=== PATIENT | male | born 1970 | race Caucasian/White ===

== ENCOUNTER 2019-11-22 15:35 | Emergency (ER) | payer MEDICAID ==
[~2019-11-22] VITALS: Ht 182.9 cm; Wt 84.5 kg
[2019-11-22 15:39] VITALS: BP 138/88
--- NOTE | 2019-11-22 15:53 | NUR ---
PT PLACED IN SECURE ROOM. BELONGINGS PLACED IN ONE BAG AND PLACED IN LOCKER. PT PLACED ON PULSE OX FOR SAFETY.
--- NOTE | 2019-11-22 15:54 | NUR ---
THIS [facility] WAS TOLD BY THE PT THAT "HE IS NOT SUICIDAL, HE IS JUST UNHAPPY WHERE HE IS IN LIFE".
--- NOTE | 2019-11-22 16:27 | NUR ---
PT PROVIDED URINE SAMPLE AND LABS DRAWN. ASSOCIATE PASTOR WALKED SAMPLES TO LAB. PRIOR TO LABE DRAW, PT STANDING IN DOORWAY STATING "I NEED MY PHONE". PT REDIRECTED BACK INTO ROOM AFTER JUST A MINUTE. PT IN DIRECT SIGHT OF SITTER FOR SAFETY.
[2019-11-22 16:29] LABS: BASOPHILS # (AUTO) 0.01 x10^3/uL (0-0.1); BASOPHILS % (AUTO) 0 % (0-1); EOSINOPHILS % (AUTO) 0 % (1-7); LYMPHOCYTES # (AUTO) 0.87 x10^3/uL (1-3.4); LYMPHOCYTES % (AUTO) 14 % (22-44); MD NO; MEAN CORPUSCULAR HEMOGLOBIN 33.4 pg (27.5-34.5); MEAN CORPUSCULAR HGB CONC 33.4 g/dL (33.2-36.2); MEAN CORPUSCULAR VOLUME 100.1 fL (81-97); MEAN PLATELET VOLUME 7.3 fL (7.4-10.4); MONOCYTES # (AUTO) 0.72 x10^3/uL (0.2-0.8); MONOCYTES % (AUTO) 12 % (2-9); NEUTROPHILS # (AUTO) 4.61 x10^3/uL (1.8-6.8); NEUTROPHILS % (AUTO) 74 % (42-75); PLATELET COUNT 154 x10^3/uL (130-400); RED BLOOD COUNT 4.67 x10^6/uL (4.38-5.82); RED CELL DISTRIBUTION WIDTH 16.1 % (9.4-14.8)
[2019-11-22 16:41] LABS: ALBUMIN 3.7 g/dL (3.4-5.0); ANION GAP 9 mmol/L (5-15); CALCIUM 8.2 mg/dL (8.5-10.1); CHLORIDE 108 mmol/L (98-107); CREATININE 0.69 mg/dL (0.7-1.3); SALICYLATE LEVEL 3.9 mg/dL (2.8-20.0)
[2019-11-22 16:48] LABS: AMPHETAMINE SCREEN, URINE Negative (Negative); BARBITURATE SCREEN, URINE Negative (Negative); BENZODIAZEPINE SCREEN, URINE Positive (Negative); CANNABINOID SCREEN, URINE Negative (Negative); COCAINE SCREEN, URINE Negative (Negative); METHADONE SCREEN, URINE Negative (Negative); OPIATE SCREEN, URINE Negative (Negative)
--- NOTE | 2019-11-22 16:50 | NUR ---
DIET TRAY DELIVERED TO PT.
--- NOTE | 2019-11-22 17:23 | NUR ---
PT GIVEN PHONE FROM [employer] TO CALL FAMILY TO UPDATE ON POC. PT GIVEN 5 MINUTES, THEN PHONE TO BE RETURNED TO [employer] BAG.
--- NOTE | 2019-11-22 17:31 | NUR ---
PT CONTACTED FAMILY AND PHONE RETURNED TO BELONGINGS BAG.
--- NOTE | 2019-11-22 18:33 | NUR ---
TASK RN: PT AMBULATORY WITH STEADY GAIT TO BATHROOM AT THIS TIME. NADN ALL SAFETY MEASURES OBTAINED. SITTER AT DOORWAY PT WITHIN FULL VIEW.
--- NOTE | 2019-11-22 19:18 | NUR ---
BREATHALYZER 0.267. PT IN DIRECT SIGHT OF SITTER. ROOM SECURE.
[2019-11-22] MEDS ORDERED: LORazepam 1MG TABLET ONE (19:37)
--- NOTE | 2019-11-22 19:40 | NUR ---
[employer] PER MAR
[2019-11-22] MEDS ORDERED: LORazepam 1MG TABLET PO ONE (20:00)
--- NOTE | 2019-11-22 21:05 | NUR ---
PT PACING IN ROOM, ASKING WHEN HE'S GOING TO GET OUT OF HERE. PT EDUCATED THAT HE SHOULD EAT FOOD PROVIDED TO [employer] FOR TELEPSYCH CONSULT.
== END 2019-11-22 22:37 | disposition home or self-care (01) ==
LOC: ED 22:01
DX: R45.851 Suicidal ideations (principal); F10.120 Alcohol abuse with intoxication, uncomplicated; Y90.9 Presence of alcohol in blood, level not specified
CPT/HCPCS: 36415; 80048; 80307; 82040; 85025; 99283